=== PATIENT | female | born 2000 | race Caucasian/White ===

== ENCOUNTER 2022-03-24 16:24 | Emergency (ER) | payer OTHER ==
[2022-03-24 16:36] VITALS: BP 157/64
[2022-03-24 16:58] LABS: BASOPHILS % (AUTO) 0.3 %; EOSINOPHILS # (AUTO) 0.2 10^3/uL (0.0-0.7); HCT - HEMATOCRIT 41.4 % (37.0-47.0); HGB - HEMOGLOBIN 13.9 g/dL (12.0-16.0); LYMPHOCYTES # (AUTO) 2.3 10^3/uL (1.5-3.5); LYMPHOCYTES % (AUTO) 38.2 %; MEAN CORPUSCULAR HEMOGLOBIN 29.2 pg (27.0-31.0); MEAN CORPUSCULAR HGB CONC 33.6 g/dL (32.0-36.0); MEAN PLATELET VOLUME 10.2 fL (7.9-10.8); MONOCYTES # (AUTO) 0.4 10^3/uL (0.0-1.0); MONOCYTES % (AUTO) 7.4 %; NEUTROPHILS % (AUTO) 50.8 %; PLT - PLATELET COUNT 243 10^3/uL (130-450); RED BLOOD COUNT 4.76 10^6/uL (4.20-5.40); RED CELL DISTRIBUTION WIDTH 12.3 % (12.0-15.0); WHITE BLOOD COUNT 5.9 x10^3/uL (4.8-10.8)
[2022-03-24 17:14] LABS: ALBUMIN 4.4 g/dL (3.2-5.5); ALBUMIN/GLOBULIN RATIO 1.5 (1.0-2.2); BILIRUBIN,TOTAL 0.7 mg/dL (0.2-1.0); CALCIUM 9.2 mg/dL (8.5-10.3); CREATININE 0.6 mg/dL (0.4-1.0); POTASSIUM 4.1 mmol/L (3.5-5.0); TOTAL PROTEIN 7.4 g/dL (6.7-8.2)
[2022-03-24] MEDS ORDERED: LOPERAMIDE 2 MG CAPSULE PO STA (17:37)
[2022-03-24] MEDS ORDERED: SODIUM CHLORIDE 0.9% 1,000 ML IV STA (17:37)
--- NOTE | 2022-03-24 17:42 | ED Physician Documentation ---
PD HPI ABD PAIN - Stated complaint Stated Complaint: HEADACHE, DIZZY, BACK PX - Chief complaint Chief Complaint: Abd Pain - History obtained from History obtained from: Patient - Additional information Additional information: She had shakes a few days ago but then today developed diarrhea some abdominal cramps, and lightheadedness. No fevers. She is feeling better now than she did earlier in the day. She was advised by the [facility] nurse advice line to seek medical evaluation. No recent travel or antibiotics. Review of Systems Constitutional: reports: Chills (gone) GI: reports: Abdominal Pain (Upper abdominal pressure without pain per se.), Diarrhea. denies: Nausea, Hematemesis, Bloody / black stool PD PAST MEDICAL HISTORY - Present Medications Home Medications: Ambulatory Orders Medication Instructions Recorded Confirmed hydrOXYzine pamoate [Hydroxyzine 0 mg PO TID PRN 03/24/22 03/24/22 Pamoate] - Allergies Allergies/Adverse Reactions: Allergies Allergy/AdvReac Type Severity Reaction Status Date / Time No Known Drug Allergies Allergy Verified 03/24/22 16:36 PD ED PE NORMAL - Vitals Vital signs reviewed: Yes - General General: Alert and oriented X 3, No acute distress - HEENT HEENT: PERRL, EOMI - Neck Neck: Supple, no meningeal sign, No bony TTP - Cardiac Cardiac: RRR, No murmur - Respiratory Respiratory: No respiratory distress, Clear bilaterally - Abdomen Abdomen: Normal bowel sounds, Soft, Non tender - Back Back: No CVA TTP, No spinal TTP - Derm Derm: Normal color, Warm and dry - Extremities Extremities: No edema, No calf tenderness / cord - Neuro Neuro: Alert and oriented X 3, Normal speech Results - Vitals Vitals: Vital Signs - 24 hr 03/24/22 16:33 Temperature 36.7 C Heart Rate 77 Respiratory 16 Rate Blood Pressure 157/64 H O2 Saturation 97 Oxygen O2 Source Mechanical ventilator - Labs Labs: Laboratory Tests 03/24/22 03/24/22 16:54 16:54 WBC 5.9 RBC 4.76 Hgb 13.9 Hct 41.4 MCV 87.0 MCH 29.2 MCHC 33.6 RDW 12.3 Plt Count 243 MPV 10.2 Neut # (Auto) 3.0 Lymph # (Auto) 2.3 Tucker # (Auto) 0.4 Eos # (Auto) 0.2 Baso # (Auto) 0.0 Absolute Nucleated RBC 0.00 Nucleated RBC % 0.0 Sodium 137 Potassium 4.1 Chloride 101 Carbon Dioxide 28 Anion Gap 8.0 BUN 11 Creatinine 0.6 Estimated GFR (MDRD) 127 Glucose 103 H Calcium 9.2 Total Bilirubin 0.7 AST 21 ALT 21 Alkaline Phosphatase 55 Total Protein 7.4 Albumin 4.4 Globulin 3.0 Albumin/Globulin Ratio 1.5 Lipase 33 PD Medical Decision Making - ED course ED course: 21-year-old with diarrhea and presyncope associated with headache today, symptoms are improving, benign examination and blood work. Offered IV fluids for symptom relief which she declined preferring to just have some oral Imodium. Departure - Departure Disposition: 01 Home, Self Care Clinical Impression: Diarrhea Condition: Good Record reviewed to determine appropriate education?: Yes Instructions: ED Diarrhea Viral Comments: No concerning findings, on blood work or exam. Return if worsening or if not better over the next 24 to 36 hours. Forms: Activity restrictions
== END 2022-03-24 17:50 | disposition home or self-care (01) ==
LOC: ED 16:24
DX: R19.7 Diarrhea, unspecified (principal); R55 Syncope and collapse; R51.9 Headache, unspecified
CPT/HCPCS: 36415; 80053; 83690; 85025; 99282; 99283; A9270